=== PATIENT | male | born 1975 | race Caucasian/White ===

== ENCOUNTER 2018-05-04 17:12 | Emergency (ER) | payer OTHER ==
[~2018-05-04] VITALS: Ht 177.8 cm; Wt 96.2 kg
[2018-05-04 17:12] VITALS: BP_SYST 160
--- NOTE | 2018-05-04 17:12 | NUR ---
BROUGHT BACK TO BED #7 AND TRIAGED. REPORT GIVEN TO LUDWIG
--- NOTE | 2018-05-04 17:28 | NUR ---
Patient walked in to ED with family member. Patient with c/o laceration to the left middle finger around 4:00pm today. Per pt, his hand slipped and was cut by his hedgers. No active bleeding noted. Patient did not take any pain meds today. Pain = 7/10. Patient A&OX4. Pt in no acute distress. Rest and relaxation encouraged.
[2018-05-04] MEDS ORDERED: LISI-600 PO (17:29)
[2018-05-04] MEDS ORDERED: BACITRACIN 1 GM OINT TP ONE (17:30)
[2018-05-04] MEDS ORDERED: HYDROcodone/ACETAMIN 5-325 MG TAB (NORCO/ VICODIN) PO ONE (17:30)
[2018-05-04] MEDS ORDERED: SODIUM BICARBONATE 8.4% VIAL 50 MEQ/50 ML VIAL INJ ONE (17:30)
[2018-05-04] MEDS ORDERED: LIDOCAINE 1% 10 MG/ML, 20 ML MDV INJ ONE (17:30)
--- NOTE | 2018-05-04 17:30 | NUR ---
KIARA Moreno at bedside and examining patient.
--- NOTE | 2018-05-04 17:39 | NUR ---
Leah BASKET PERSON is at bedside suturing middle finger, pt tolerating well
--- NOTE | 2018-05-04 18:19 | NUR ---
Patient has a 3 cm and 1 cm laceration to left middle finger. KIARA Moreno applied 15 sutures using sterile technique. Edges well approximated. Site cleansed with NS. Bacitracin and non-adherent dressing applied to site. No bleeding noted. Pt tolerated well.
--- NOTE | 2018-05-04 18:20 | NUR ---
Patient educated on s/sx of infection. Patient instructed to seek medical attention [place] if present and to go to the ED for any emergencies. Patient verbalized understanding.
[2018-05-04 18:40] VITALS: BP_SYST 131
--- NOTE | 2018-05-04 18:40 | NUR ---
Patient given written and verbal discharge instructions and verbalizes understanding. ER MD discussed with patient the results and treatment provided. Patient in stable condition. ID arm band removed. Rx of motrin, bacitracin zinc, keflex, and norco given. Patient educated on pain management and to follow up with PMD. Pain Scale 5/10; tolerable as verbalized. No objective s/sx of pain observed. Opportunity for questions provided and answered. Medication side effect fact sheet provided.
== END 2018-05-04 18:40 | disposition home or self-care (01) ==
LOC: SED 17:12
DX: S61.231A Puncture wound without foreign body of left index finger without damage to nail, initial encounter (principal); I10 Essential (primary) hypertension; W29.3XXA Contact with powered garden and outdoor hand tools and machinery, initial encounter; Y93.89 Activity, other specified; Y92.096 Garden or yard of other non-institutional residence as the place of occurrence of the external cause; Y99.8 Other external cause status
CPT/HCPCS: 12002; 99283; J2001